=== PATIENT | male | born 1975 | race Two or more races ===

== ENCOUNTER 2021-03-11 18:24 | Emergency (ER) | payer SELFPAY ==
[~2021-03-11] VITALS: Ht 182.9 cm; Wt 113.4 kg
[2021-03-11] MEDS ORDERED: fentaNYL CITRATE 100 MCG/2 ML VL IV ONE (21:00)
[2021-03-11] MEDS ORDERED: LIDOCAINE 1% HCL (LOCAL ANESTH.) INJ 20ML MDV ID ONE (21:00)
[2021-03-11] MEDS ORDERED: MIDAZOLAM HCL 2MG/2ML 2ml VIAL (1mg/ml) IV ONE (21:45)
[2021-03-11] MEDS ORDERED: IBUP600T27 PO (22:37)
[2021-03-11 22:56] VITALS: BP 145/99
== END 2021-03-11 22:55 | disposition home or self-care (01) ==
LOC: ER 18:26
DX: S43.014A Anterior dislocation of right humerus, initial encounter (principal); X58.XXXA Exposure to other specified factors, initial encounter; Y93.89 Activity, other specified; Y92.89 Other specified places as the place of occurrence of the external cause; Y99.8 Other external cause status
CPT/HCPCS: 23650; 73030; 96374; 96375; 99285; J2001; J2250; J3010